=== PATIENT | female | born 1975 | race Caucasian/White ===

== ENCOUNTER → 2021-08-01 16:09 | Outpatient (CLI) | payer OTHER, SELFPAY ==
--- NOTE | 2021-08-01 16:17 | DI.MG.S_ITS ---
BILATERAL DIGITAL SCREENING MAMMOGRAM 3D/2D WITH CAD: 08/01/2021 CLINICAL: Routine screening. Comparison is made to exams dated: 08/01/2015 mammogram and 08/01/2015 ultrasound - out side. The tissue of both breasts is heterogeneously dense. This may lower the sensitivity of mammography. Current study was also evaluated with a Computer Aided Detection (CAD) system. No significant masses, calcifications, or other findings are seen in either breast. There has been no significant interval change. IMPRESSION: NEGATIVE There is no mammographic evidence of malignancy. A 1 year screening mammogram is recommended. This exam was interpreted at Station ID: [id number]. NOTE: For mammograms, a report in lay terms will be sent to the patient. Approximately 15% of breast malignancies will not be visualized mammographically. In the management of a palpable breast mass, a negative mammogram must not discourage biopsy of a clinically suspicious lesion. Electronically Signed By: Sinan cerna/jamar:08/02/2021 15:29:44 letter sent: Normal Exam ACR BI-RADS Category 1: Negative [id number]
== END ==
PROVIDERS: Referring Provider Nurse Practitioner; Visit Provider Nurse Practitioner
DX: Z12.31 Encounter for screening mammogram for malignant neoplasm of breast (principal)
CPT/HCPCS: 77063; 77067

== ENCOUNTER 2023-11-26 16:00 | Emergency (ER) | payer OTHER, SELFPAY ==
[2023-11-26] VITALS (8 sets, daily range): BP systolic 103–118; BP diastolic 54–73; PULSE 43–54; RESP 11–24; TEMP 36.3–36.7; O2SAT 95–98; BMI 31.2
--- NOTE | 2023-11-26 16:23 | DI.RAD.S_ITS ---
PROCEDURE: XR CHEST 1V INDICATIONS: chest pain TECHNIQUE: One view of the chest was acquired. COMPARISON: [facility], , CHEST 2 VIEW, 09/07/2016, 16:20. FINDINGS: Surgical changes and devices: None. Lungs and pleura: Lungs are clear. No pleural effusions or pneumothorax. Mediastinum: Mediastinal contours appear normal. Heart size is normal. Bones and chest wall: No suspicious bony lesions. Overlying soft tissues appear unremarkable. IMPRESSION: No acute cardiopulmonary abnormality is seen. Approved by: Wolfgang Delatorre M.D. on 11/26/2023 at 16:58
--- NOTE | 2023-11-26 16:31 | EKG_ITS ---
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
[2023-11-26 16:45] LABS: Add Manual Diff / Slide Review NO; Basophils Absolute Auto 0 /uL (0-100); Basophils Percent Auto 0.5 % (0-2); Eosinophils Absolute Auto 300 /uL (0-450); Eosinophils Percent Auto 3.2 % (2-4); Hematocrit 40.7 % (36-46); Hemoglobin 13.7 g/dL (12.0-16.0); Lymphocytes Absolute Auto 2300 /uL (1100-4500); Lymphocytes Percent Auto 24.8 % (25-40); Mean Corpuscular HGB Conc 33.6 % (30-36); Mean Corpuscular Hemoglobin 31.9 PG (26-34); Monocytes Absolute Auto 800 /uL (0-900); Monocytes Percent Auto 8.2 % (3-14); Neutrophils Absolute Auto 5900 /uL (1500-7000); Neutrophils Percent Auto 63.3 % (50-75); Platelet Count 285 X10^3/uL (150-400); Red Blood Cell Count 4.29 X10^6/uL (4.0-5.2); Red Cell Distribution Width 13.5 % (11.6-14.8); White Blood Cell Count 9.4 X10^3/uL (4.5-11.0)
[2023-11-26 16:53] LABS: INR 0.9 (0.9-1.3); Prothrombin Time 10.6 SECONDS (9.4-12.5)
[2023-11-26 16:56] LABS: PTT Partial Thromboplastin Tim 32 SECONDS (25.1-36.5)
[2023-11-26 16:58] LABS: Alanine Aminotransferase 23 IU/L (<35); Albumin 4.3 g/dL (3.5-5.0); Albumin Globulin Ratio 1.4 (1.0-2.8); Alkaline Phosphatase 67 U/L (38-126); Aspartate Aminotransferase 26 IU/L (14-36); BUN Creatinine Ratio 19.8 (6-22); Bilirubin Total 0.4 mg/dL (0.2-1.3); Blood Urea Nitrogen 17 mg/dL (7-17); Calcium 9.5 mg/dL (8.4-10.2); Carbon Dioxide 26 mmol/L (22-32); Chloride 103 mmol/L (98-107); Creatine Kinase 76 U/L (30-135); Estimated Glomerular Filt Rate > 60 mL/min (>60); Globulin 3.1 g/dL (1.7-4.1); Glucose 91 mg/dL (70-100); HEMOLYSIS < 15 (0-50); Lipase 97 U/L (23-300); Magnesium 2.2 mg/dL (1.6-2.3); Potassium 4.1 mmol/L (3.4-5.1); Sodium 135 mmol/L (137-145); Total Protein 7.4 g/dL (6.3-8.2)
[2023-11-26 17:10] LABS: NT-proBNP (BNP-Adult 18+) 134 pg/mL (<125); Troponin I < 0.012 ng/mL (0.01-0.034)
--- NOTE | 2023-11-26 19:08 | ED_ITS ---
HPI - Chest Pain General Chief Complaint: Chest Pain Stated Complaint: L Shoulder Px Time Seen by Provider: 11/26/23 18:01 History of Present Illness HPI narrative: 48-year-old woman complains of left shoulder pain radiating into the left side of her neck, increasing night sweats, shortness of breath, increasing dizzy spells over the last 3-4 weeks, significant increased life stressors, no overt chest pain. Notes hot flashes, increased insomnia. 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 Related Data Home Medications Medication Instructions Recorded Confirmed [ENEMA] ##0 09/07/16 [LAXATIVES] ##0 09/07/16 ibuprofen 400 mg tablet 400 mg PO ##0 09/07/16 magnesium hydroxide 2,400 mg/10 mL 30 ml PO ##0 09/07/16 oral suspension (Milk Of Magnesia Concentrated) Allergies Allergy/AdvReac Type Severity Reaction Status Date / Time No Known Allergies Allergy Uncoded 06/18/17 12:41 Review of Systems Review of Systems Narrative: Pertinent positive and negative findings as per HPI Patient History Social History Smoking Status: Current every day smoker Smoking Status: Current every day smoker tobacco type: vaping alcohol intake frequency: 3 or more drinks per day Substance Use Type: marijuana Exam Initial Vital Signs Initial Vital Signs: Vital Signs Temperature 97.4 F L 11/26/23 16:16 Pulse Rate 54 L 11/26/23 16:16 Respiratory Rate 16 11/26/23 16:16 Blood Pressure 118/58 L 11/26/23 16:16 Pulse Oximetry 98 11/26/23 16:16 Oxygen Delivery Method Room Air 11/26/23 16:16 General: Healthy appearing, in no acute distress. Able to give a complete and coherent history. Well-nourished well-developed HEENT: Moist mucous membranes, normal sclera with reactive pupils, Neck: No midline cervical spine tenderness. No radicular symptoms Respiratory: Lungs are clear to auscultation, no wheezing no rales no rhonchi. Full and symmetrical air movement Cardiac: Regular rate and rhythm no murmurs no bruits Abdomen: Soft, nontender, good bowel tones, no flank pain Skin: Warm and dry, no rashes Neurologic: Grossly neurologically intact with no obvious asymmetries or abnormalities Extremities: No trauma, she does have tenderness in the left bicipital insertion with bicipital flexion that reproduces her pain. There is no redness warmth or swelling to the left shoulder joint Psych: Cooperative, appropriate insight and affect Course Orders Ordered: ED Orders 11/26/23 16:23 XR chest 1V Stat EKG-12 Lead Stat 11/26/23 16:35 Complete Blood Count AUTO DIFF Stat Comprehensive Metabolic Panel Stat Lipase Stat Magnesium Stat NT-proBNP (BNP-Adult 18+) Stat PTT Partial Thromboplastin [place] Stat Prothrombin Time INR Stat Troponin & CK Cardiac Panel Stat Vital Signs Vital signs: Vital Signs - 8 hr 11/26/23 16:16 11/26/23 17:12 11/26/23 17:13 Temperature 97.4 F L Pulse Rate 54 L 50 L 50 L Respiratory Rate 16 13 Blood Pressure 118/58 L Pulse Oximetry 98 97 97 Oxygen Delivery Method Room Air 11/26/23 17:13 11/26/23 17:30 11/26/23 17:30 Temperature Pulse Rate 47 L Respiratory Rate 21 Blood Pressure 116/60 111/63 Pulse Oximetry 95 Oxygen Delivery Method 11/26/23 18:00 11/26/23 18:00 11/26/23 18:30 Temperature Pulse Rate 47 L 50 L Respiratory Rate 18 11 L Blood Pressure 103/57 L Pulse Oximetry 96 96 Oxygen Delivery Method 11/26/23 18:30 Temperature Pulse Rate Respiratory Rate Blood Pressure 112/63 Pulse Oximetry Oxygen Delivery Method MDM - Chest Pain Lab Data 11/26/23 16:35 11/26/23 16:35 Labs: Lab Results 11/26/23 Range/Units 16:35 WBC 9.4 (4.5-11.0) X10^3/uL RBC 4.29 (4.0-5.2) X10^6/uL Hgb 13.7 (12.0-16.0) g/dL Hct 40.7 (36-46) % MCV 95.0 (80-100) fL MCH 31.9 (26-34) PG MCHC 33.6 (30-36) % RDW 13.5 (11.6-14.8) % Plt Count 285 (150-400) X10^3/uL Neut % (Auto) 63.3 (50-75) % Lymph % (Auto) 24.8 L (25-40) % [place] % (Auto) 8.2 (3-14) % Eos % (Auto) 3.2 (2-4) % Baso % (Auto) 0.5 (0-2) % Neut # (Auto) 5900 (6839-2625) /uL Lymph # (Auto) 2300 (7856-4176) /uL [place] # (Auto) 800 (0-900) /uL Eos # (Auto) 300 (0-450) /uL Baso # (Auto) 0 (0-100) /uL PT 10.6 (9.4-12.5) SECONDS INR 0.9 (0.9-1.3) APTT 32 (25.1-36.5) SECONDS Sodium 135 L (137-145) mmol/L Potassium 4.1 (3.4-5.1) mmol/L Chloride 103 (98-107) mmol/L Carbon Dioxide 26 (22-32) mmol/L BUN 17 (7-17) mg/dL Creatinine 0.86 (0.52-1.04) mg/dL Estimated GFR > 60 (>60) mL/min BUN/Creatinine Ratio 19.8 (6-22) Glucose 91 (70-100) mg/dL Calcium 9.5 (8.4-10.2) mg/dL Magnesium 2.2 (1.6-2.3) mg/dL Total Bilirubin 0.4 (0.2-1.3) mg/dL AST 26 (14-36) IU/L ALT 23 (<35) IU/L Alkaline Phosphatase 67 (38-126) U/L Total Creatine Kinase 76 (30-135) U/L Troponin I < 0.012 (0.01-0.034) ng/mL NT-Pro-B Natriuret Pep 134 H (<125) pg/mL Total Protein 7.4 (6.3-8.2) g/dL Albumin 4.3 (3.5-5.0) g/dL Globulin 3.1 (1.7-4.1) g/dL Albumin/Globulin Ratio 1.4 (1.0-2.8) Lipase 97 (23-300) U/L MDM Narrative Medical decision making narrative: CC: Left arm and neck pain, increased psychosocial stressors, dizziness Complicating co-morbidities: Moving to [place] in 3 weeks, 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 As she sat up and begin speaking went up to 72. Heart and lungs are benign. Her left arm she has some tenderness with the proximal biceps insertion that does reproduce her shoulder pain. Lab Test results independently reviewed as above. Pertinent findings: CBC is unremarkable Chemistries are reassuring ProBNP is not elevated Troponin is undetectable Independently reviewed EKG: EKG shows sinus bradycardia at a rate of 50, otherwise normal intervals, normal axis. 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 There was no evidence of acute coronary syndrome, her heart score is 0. No evidence of cervical radiculopathy. We did briefly discuss the low heart rate. That might be part of the dizziness or fatigue that she is experiencing but it may simply be normal physiology for her. Recommended ibuprofen, Tylenol, ice packs. Unfortunately she has not going to be able to fully rest her arm/shoulder for about a month until they are in the process of actually moving. Recommended that she do a bit more research on menopause, and follow up with her new primary care physician when she gets to [place]. She may benefit from additional evaluation of the relative bradycardia when she is at rest. At this point there was no indication for additional blood work imaging or hospitalization. Questions are answered and she is safe for discharge Discharge Plan Departure Patient Disposition: Home Clinical Impression: Biceps tendinitis of left shoulder Instructions: DI for Tendinitis Activity Restrictions/Additional Instructions: Thank you for coming in today I think that the source of your acute left shoulder pain is bicipital tendinitis. Your job is going to make this worse. If you are able to rest the shoulder for any period of time you may find that that helps. In the meantime, using 400 mg of ibuprofen (2 ovan-ijq-tvnldmn pills) and 1 Tylenol every 6 hours can be very helpful in controlling pain. Ice may be helpful. Topical nonsteroidals (such as Voltaren/diclofenac) may be of benefit. I would encourage you to do a bit of your own research on menopause and how decreasing estrogen levels can cause more problems than just hot flashes. I noticed that your heart rate is slightly low as you are almost asleep. This may be an absolutely normal variant for you but could also be contributing to some of the fatigue and dizziness that you been experienced over the last couple weeks. I would recommend discussing all of these issues with your new physician when you get establishing [place]. Prescriptions: No Action ibuprofen 400 MG tablet 400 mg PO Qty: 0 [ENEMA] Qty: 0 [LAXATIVES] Qty: 0 magnesium hydroxide [Milk Of Magnesia Concentrated] 2,400 MG/10 ML suspension 30 ml PO Qty: 0 Stand Alone Forms: Patient Portal/API
== END 2023-11-26 19:38 | disposition home or self-care (01) ==
PROVIDERS: Emergency Medicine; Emergency Provider Emergency Medicine
DX: M75.22 Bicipital tendinitis, left shoulder (principal); R00.1 Bradycardia, unspecified; M54.2 Cervicalgia; R07.9 Chest pain, unspecified
CPT/HCPCS: 36415; 71045; 80053; 82550; 83690; 83735; 83880; 84484; 85025; 85610; 85730; 93005; 99284